=== PATIENT | male | born 1960 | race Caucasian/White ===

== ENCOUNTER 2017-04-26 17:49 | Emergency (ER) | payer BC ==
[~2017-04-26] VITALS: Ht 185.4 cm; Wt 131.8 kg
[2017-04-26 18:07] VITALS: BP 164/83; PULSE 80; TEMP 98.7
== END 2017-04-26 21:00 | disposition home or self-care (01) ==
LOC: COL.ER 17:49
DX: H57.8 Other specified disorders of eye and adnexa (principal); E11.9 Type 2 diabetes mellitus without complications; I10 Essential (primary) hypertension; Z79.4 Long term (current) use of insulin